=== PATIENT | male | born 1955 | race Caucasian/White ===

== ENCOUNTER 2018-08-26 12:48 | Emergency (ER) | payer OTHER, MEDICAID ==
[~2018-08-26] VITALS: Ht 182.9 cm; Wt 94.3 kg
[2018-08-26 13:04] VITALS: Ht 182.9 cm; Wt 94.3 kg
[2018-08-26 13:38] VITALS: BP 151/106
== END 2018-08-26 13:38 | disposition home or self-care (01) ==
LOC: ED 12:48
DX: K21.9 Gastro-esophageal reflux disease without esophagitis (principal); R05 Cough; Z98.890 Other specified postprocedural states